=== PATIENT | male | born 1990 | race Caucasian/White ===

== ENCOUNTER 2017-11-20 11:43 | Emergency (ER) | payer BC ==
[~2017-11-20] VITALS: Ht 193 cm; Wt 102.1 kg
[~2017-11-20 11:43] MED LIST: AMOXICILLIN500 MG PO; CLINDAMYCIN300 MG PO; CORTISPORIN SUS10 ML OT; PENICILLIN-VK500 M1 PO; TRIMOX500 MG PO; ULTRAM50 MG PO
[2017-11-20] MEDS ORDERED: ZYRTEC10 M3 PO (13:01)
[2017-11-20] MEDS ORDERED: AMOXICILLIN500 M2 PO (13:01)
[2017-11-20] MEDS ORDERED: PREDNISONE50 MG PO (13:01)
== END 2017-11-20 13:25 | disposition home or self-care (01) ==
LOC: ED 11:43
DX: J01.90 Acute sinusitis, unspecified (principal); Z88.6 Allergy status to analgesic agent

== ENCOUNTER 2018-03-26 15:40 | Emergency (ER) | payer SELFPAY ==
[~2018-03-26 15:40] MED LIST changes: +AMOXICILLIN500 M2 PO; +PREDNISONE50 MG PO; +ZYRTEC10 M3 PO
== END 2018-03-26 16:15 | disposition home or self-care (01) ==
LOC: ED 15:40
DX: Z88.6 Allergy status to analgesic agent (principal); Z79.2 Long term (current) use of antibiotics; Z79.899 Other long term (current) drug therapy; Z20.2 Contact with and (suspected) exposure to infections with a predominantly sexual mode of transmission

== ENCOUNTER 2018-10-06 21:48 | Emergency (ER) | payer BC ==
[~2018-10-06] VITALS: Ht 193 cm; Wt 99.8 kg
[2018-10-06] MEDS ORDERED: AUGMENTIN 875-875 MG PO (22:22)
== END 2018-10-06 22:58 | disposition home or self-care (01) ==
LOC: ED 21:48
DX: K02.9 Dental caries, unspecified (principal); Z88.6 Allergy status to analgesic agent; Z79.2 Long term (current) use of antibiotics; Z79.899 Other long term (current) drug therapy